=== PATIENT | female | born 1975 | race Two or more races ===

== ENCOUNTER 2022-11-10 11:21 | Emergency (ER) | payer SELFPAY ==
[~2022-11-10] VITALS: Ht 167.6 cm; Wt 79.6 kg
[2022-11-10 11:44] LABS: Eosinophils # (auto) 0.1 10 ^3/uL (0-0.8); Eosinophils % (auto) 0.7 % (0.0-7.0); Lymphocytes # (auto) 1.5 10 ^3/uL (0.4-5.4)
[2022-11-10 11:46] LABS: Basophils # (auto) 0.1 10 ^3/uL (0-0.2); Basophils % (auto) 0.6 % (0.0-2.0); Hematocrit 38.8 % (36.0-46.0); Hemoglobin 12.6 g/dL (12.2-16.2); Lymphocytes % (auto) 14.5 % (10.0-50.0); Mean Corpuscular Hemoglobin 25.7 pg (28.0-32.0); Mean Corpuscular Hgb Conc. 32.5 g/dL (32.0-36.0); Mean Corpuscular Volume 79.3 fL (80.0-100.0); Monocytes # (auto) 0.5 10 ^3/uL (0-1.3); Monocytes % (auto) 4.8 % (0.0-12.0); Neutrophils # (auto) 8.4 10 ^3/uL (1.6-8.6); Neutrophils % (auto) 79.4 % (37.0-80.0); Red Blood Cells 4.89 10^6/uL (4.0-5.20); Red Cell Distribution Width 17.7 % (11.8-14.3); White Blood Cell 10.6 10^3/uL (4.4-10.8)
[2022-11-10 12:32] LABS: Albumin 3.7 g/dL (3.4-5.0); Potassium 4.2 mmol/L (3.5-5.1)
[2022-11-10 12:36] LABS: BUN/Creatinine Ratio 16.5 (10.0-20.0); Bilirubin, Total 0.4 mg/dL (0.2-1.0); Total Protein 7.7 g/dL (6.4-8.2)
[2022-11-10 15:17] VITALS: BP 173/97
[2022-11-10] MEDS ORDERED: IBUP800T27 PO (17:05)
[2022-11-10] MEDS ORDERED: TRIA37.56 PO (17:05)
== END 2022-11-10 17:18 | disposition home or self-care (01) ==
LOC: ER 11:21
DX: K80.20 Calculus of gallbladder without cholecystitis without obstruction (principal); R00.2 Palpitations; I10 Essential (primary) hypertension
CPT/HCPCS: 36415; 71045; 76705; 80053; 83880; 84484; 85025; 93005